=== PATIENT | male | born 1980 | race Caucasian/White ===

== ENCOUNTER 2024-09-27 06:23 | Day surgery (SDC) | payer OTHER, SELFPAY | END 2024-09-27 12:20 | disposition home or self-care (01) | LOC: GI 06:23 | PROVIDERS: ATTENDING PHYSICIAN Internal Medicine Gastroenterology | DX: R10.12 Left upper quadrant pain (principal); K29.70 Gastritis, unspecified, without bleeding | CPT/HCPCS: 43239; 88305; 88342 ==

== ENCOUNTER → 2025-04-18 07:01 | Outpatient (REF) | payer OTHER, SELFPAY | LOC: RAD 07:01 | PROVIDERS: ATTENDING PHYSICIAN Internal Medicine Gastroenterology; FAMILY PHYSICIAN Internal Medicine | DX: R10.12 Left upper quadrant pain (principal) | CPT/HCPCS: 76700 ==